=== PATIENT | male | born 1985 | race African-American/Black ===

== ENCOUNTER 2018-01-18 17:01 | Emergency (ER) | payer MEDICAID ==
[~2018-01-18] VITALS: Ht 188 cm; Wt 100.0 kg
[2018-01-18] MEDS ORDERED: IBUPROFEN 800MG TABLET PO ONE (17:45)
[2018-01-18 20:02] VITALS: BP 123/77
== END 2018-01-18 20:05 | disposition home or self-care (01) ==
LOC: ER 17:20
DX: S46.811A Strain of other muscles, fascia and tendons at shoulder and upper arm level, right arm, initial encounter (principal); V43.52XA Car driver injured in collision with other type car in traffic accident, initial encounter; Y93.89 Activity, other specified; Y92.488 Other paved roadways as the place of occurrence of the external cause
CPT/HCPCS: 73030; 99283